=== PATIENT | female | born 1955 ===

== ENCOUNTER 2021-02-13 09:17 | Day surgery (SDC) | payer OTHER | END 2021-02-13 15:15 | disposition home or self-care (01) | LOC: AMB-ENDOS 09:17 | PROVIDERS: ATTEND Colon & Rectal Surgery | DX: D12.2 Benign neoplasm of ascending colon (principal); D12.3 Benign neoplasm of transverse colon; D12.5 Benign neoplasm of sigmoid colon; Z20.822 Contact with and (suspected) exposure to COVID-19; K64.8 Other hemorrhoids ==